=== PATIENT | female | born 1975 | race Caucasian/White ===

== ENCOUNTER 2023-02-20 10:12 | Day surgery (SDC) | payer OTHER, SELFPAY ==
--- NOTE | 2023-02-18 06:49 | EKG12_ITS ---
Test Reason : PREOP Blood Pressure : / mmHG Vent. Rate : 081 BPM Atrial Rate : 081 BPM P-R Int : 126 ms QRS Dur : 104 ms QT Int : 356 ms P-R-T Axes : 077 079 065 degrees QTc Int : 413 ms Normal sinus rhythm Normal ECG Confirmed by YANNICK GARCIA ([id number]), assignment editor BRIONNA GAMA ([id number]) on 02/18/2023 11:23:47 AM Referred By: Henry Mark Confirmed By:YANNICK GARCIA
[2023-02-18 07:12] LABS: Hematocrit 43.3 % (37-47); Hemoglobin 14.7 g/dL (12.0-15.0); Mean Corp Hgb Conc 33.9 g/dL (32-36); Mean Corpuscular Hgb 33.4 pg (27.0-32.0); Mean Corpuscular Volume 98.4 fL (81-99); Platelet Count 222 K/mm3 (150-450); RBC Distribution Width SD 43.7 fl (35.1-43.9); White Blood Count 4.5 K/mm3 (4.4-11.0)
[2023-02-18 07:35] LABS: Anion Gap 3 (5-15); BUN 13 mg/dL (7-18); BUN/Creat Ratio 18.7 RATIO (10-20); Calcium,Total 8.9 mg/dL (8.5-10.1); Chloride 107 mmol/L (98-107); Creatinine, Serum 0.69 mg/dL (0.55-1.02); EST Glomerular Filtration Rate 96 mL/min (>60); Est Glom Filt Rate - Afr Amer 116 mL/min (>60); Glucose 66 mg/dL (74-106); Potassium 3.7 mmol/L (3.5-5.1); Sodium Level 139 mmol/L (136-145)
[2023-02-18 07:49] LABS: Thyroid Stim Hormone (TSH) 0.54 uIU/mL (0.358-3.74)
--- NOTE | 2023-02-20 10:22 | HP.PCM_ITS ---
History and Physical Date of Admission: 02/20/23 Utility Assembler Required: No Is patient in pain?: No Allergies latex Adverse Reaction (Mild, Verified 02/04/23 07:51) OVER TIME BREAKS OUTminocycline Adverse Reaction (Mild, Verified 02/04/23 07:51) RINGING IN EARS Medications levothyroxine 88 mcg tablet 112 mcg PO DAILY 09/14/16 [History Confirmed 02/04/23] ascorbate calcium (vitamin C) 500 mg tablet 500 mg PO DAILY 02/04/23 [History Confirmed 02/04/23] cholecalciferol (vitamin D3) 25 mcg (1,000 unit) capsule 25 mcg PO DAILY 02/04/23 [History Confirmed 02/04/23] multivitamin 1 tab PO DAILY 02/04/23 [History Confirmed 02/04/23] [facility] Medical History (Updated 11/14/22 @ 05:[address] 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 Patient denies any recent hospitalizations or illnesses. Patient denies any abdominal symptoms. Patient denies nausea, vomiting, fever. Patient denies any previous complications or side effects from anesthesia. She denies any cardiac history or pulmonary history. Patient's previous history per Dr. Mark: 47-year-old female. A gallbladder ultrasound was obtained showing cholelithiasis including a 1.5 cm stone in the neck of the gallbladder. Common bile duct is normal. That was performed September 07, 2022 [facility]. The patient had a hepatobiliary scan October 12, 2022 showing ejection fraction of 28%. Stones were found during an MRI. She claims that she has absolutely no symptoms. She does have trouble keeping weight on. No abdominal pain no food intolerance. 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 ROS General General: Yes breast cancer; No weight change, appetite, fatigue, colon cancer or weakness Additional Details: DCIS 2014 HEENT HEENT: No difficulty swallowing, eye injury, eye surgery, swollen glands or hoarseness Endo Endocrine: Yes thyroid disease; No diabetes mellitus, thyroid cancer, Hair loss, heat intolerance or cold intolerance Skin Skin: No rash or changing moles Musc Musculoskeletal: No back problems, arthritis, rheumatoid arthritis, gout or joint pain Cardio Cardiovascular: No murmur, pacemaker, heart disease, atrial fibrillation, high blood pressure, heart attack, heart stent, palpitations, shortness of breat with exertion or chest pain Psych Psychiatric: No depression, anxiety or hearing voices Resp Respiratory: No shortness of breath, No sleep apnea, No cough, No COPD, No asthma, No emphysema and No wheezing Gastro Gastrointestinal: No abdominal pain, No nausea or vomiting, No diarrhea, No constipation, No blood in stool, No acid reflux, No hemorrhoids, No ulcers, Yes gallbladder problem and No black,tarry stools Wes Hematologic: No blood thinners, No blood disorders, No bleeding, No anemia and No blood clots Neuro Neurologic: No system reviewed and no additional complaints, except as documented, No as per HPI, No abnormal gait, No abnormal hearing, No abnormal movements, No abnormal speech, No behavioral changes, No burning sensations, No confusion, No convulsions, No disequilibrium, No dizziness, No localized weakness, No frequent falls, No headache(s), No lack of coordination, No loss of vision, No memory loss, No numbness, No other visual disturbances, No radicular pain, No restless legs, No sensory deficit, No syncope, No tingling, No tremor(s), No weakness and No other Exam Const General: cooperative, healthy appearing, comfortable and no acute distress HENUT Head: normal to inspection Eyes General: appearance normal, both eyes and all related structures Neck Neck: normal visual inspection Neck mass: No Resp Effort & Inspection: normal respiratory effort Auscultation: clear to auscultation bilaterally Cardio Rate: regular rate Rhythm: regular rhythm GI Inspection: normal to inspection Palpation: soft Auscultation: normal bowel sounds Musc Cervical Spine: normal cervical lordosis Skin General: no rashes or lesions noted Neuro General: no focal motor deficits and CN's II-XI intact bilaterally Extrem General: normal to inspection Psych Appearance: grossly normal Affect: normal affect Assessment and Plan Assessment and Plan (1) Cholelithiasis with chronic cholecystitis: Status: Chronic Qualifiers: Cholelithiasis location: gallbladder Biliary obstruction: without biliary obstruction Qualified Code(s): K80.10 - Calculus of gallbladder with chronic cholecystitis without obstruction Plan: Dr. Mark will plan to perform a laparoscopic cholecystectomy with intraoperative cholangiogram. Procedure details, risks and benefits have been explained. Patient has had the opportunity to ask and have questions answered. Patient verbally understands and agrees with the plan. Post-operative instructions were explained to the patient I have examined the patient and the H&P has been reviewed. There are no clinical changes since date of exam. Henry Mark M.D., F.A.C.S.
--- NOTE | 2023-02-20 10:23 | DCINST_ITS ---
Discharge Instructions Procedure General Surgery Diet Discharge Diet: Light diet - advance as tolerated (if you have questions about your diet instructions, please talk to you doctor.) Activity Discharge Activity: May Not Drive (for 3-5 days or while taking narcotic pain medicine.) May shower in (days): 1 Lifting Restrictions: 10 pounds Dressing / Incision Call your doctor if your incision/area has: Continuous Slow Oozing, Sudden Increased Bleeding, Increased Pain/ Swelling, Increased Redness and Foul Smelling Discharge Call your doctor if you observe: Fever of 101 or Higher Suture Line Care: Avoid Pulling/Pushing and Avoid Pinching/Bending Additional Dressing/Incision Instructions:: Change or remove dressing in 4 days. Leave steri-strips in place for 1 week. Follow Up Care Please Follow Up With: Henry Mark MD When: Call [phone] to make an appointment to be seen in about 10 days. Test Results: Test results from this visit will be discussed in further detail at your follow- up appointment, if applicable. Discharge Plan Admission Attending Provider: Henry Mark Primary Care Provider: Pradeep Joy Discharge Orders/Prescriptions Prescriptions: No Action ascorbate calcium (vitamin C) 500 mg tablet 500 mg PO DAILY cholecalciferol (vitamin D3) 25 mcg (1,000 unit) capsule 25 mcg PO DAILY multivitamin Tablet 1 tab PO DAILY levothyroxine 88 MCG tablet 112 mcg PO DAILY Referrals / Follow Up: Pradeep Joy MD [Primary Care Provider] - Disposition Disposition (needs filled in before D/C Order can be placed): Home, Self Care
[2023-02-20] MEDS: Lactated Ringers 1,000 ML 15 ML IV (10:48)
[2023-02-20 10:49] VITALS: BP 133/77; PULSE 96; RESP 18; TEMP 37.1; O2SAT 100; BMI 19.1
[2023-02-20 11:13] LABS: Internal QC Validated? YES +Cl - CLEAR BKGD; Pregnancy, Urine Negative Negative
[2023-02-20] MEDS: Cefazolin 2 GM in 0.9% Normal Saline (100mL Bag) 100 ML IV (11:54)
--- NOTE | 2023-02-20 12:15 | RAD_ITS ---
STUDY: INTRAOPERATIVE CHOLANGIOGRAM. REASON FOR EXAM: Female, 47 years old. Laparoscopic cholecystectomy. FLUOROSCOPY TIME (if supplied): ( 39 seconds ) minutes/seconds. 40.97 mGy TECHNIQUE: An intraoperative cholangiogram was performed by the surgeon. Imaging was submitted. COMPARISON: None. FINDINGS: The visualized intra and extrahepatic biliary ducts are unremarkable. No intraluminal filling defect is seen. There is free flow of contrast into the duodenum. RAD/Cholangiogram/ O R,Initial IMPRESSION: Unremarkable intraoperative cholangiogram. Electronically Signed: Lew Seymour MD at 15:44 EST ,
--- NOTE | 2023-02-20 12:30 | GALL_PTH ---
PATIENT: SULEMA RUDD [place] [facility] [id number] AGE/SX: 47/F ROOM: RE02/20/[address]: Dr. Henry Mark MD : 1975 BED: DIS: 02/20/2023 SPEC #: [id number] RECD: 02/21/23 07:47 STATUS: ROMEO REDanny #: [id number] MAG: 02/20/23 12:[address]: Henry Mark DEPT: SURGICAL PATHOLOGY RECD BY: Aliica Parrish ENTERED: 02/21/23 07:47 SP TYPE: SELENE COLEMAN DR: Dr. Pradeep Joy MD Tissues: Gallbladder, NOS Procedures: Surgery Specimen Level III HEADER OPERATION: Laparoscopic cholecystectomy with IOC PRE-OP DIAGNOSIS: Cholelithiasis with chronic cholecystitis TISSUE SUBMITTED: Gallbladder MICROSCOPIC DIAGNOSIS Gallbladder, cholecystectomy: Chronic cholecystitis and cholelithiasis. AM:lanny 02/22/2023 MICROSCOPIC DESCRIPTION Slides are reviewed. GROSS DESCRIPTION Received is one container labeled with the patient's name and designated gallbladder. The specimen consists of a gallbladder measuring 6.7 x 3.0 x 2.8 cm. The external surface is smooth and glistening. Focally, it is granular, hemorrhagic and contains cautery artifact. The lumen of the gallbladder contains yellow-green mucoid bile and multiple dark green to black calculi ranging in size from <0.1 to 1.5 cm in greatest dimension. The mucosa is bile-stained and without any mass lesions. The gallbladder wall averages 0.2 cm in thickness and is free of mass lesions. Billiard Table Repairer sections of the gallbladder and the cystic duct at margin of resection are submitted in one cassette. / AM:lanny 02/21/2023 TC:3 CPT: 56979
[2023-02-20] MEDS: Bupivacaine Mpf 0.5% 30 ML VIAL (14:00)
--- NOTE | 2023-02-20 14:12 | PCM.OPRPT ---
Report of Operation Date of Procedure: 02/20/23 Pre-Operative Diagnosis: Chronic cholecystitis cholelithiasis Post-Operative Diagnosis: Chronic cholecystitis cholelithiasis Surgery/Procedure Performed:: Laparoscopic cholecystectomy with cholangiograms Description of Surgical Findings:: Timeout informed consent was obtained. 47-year-old female was taken to the operating placement table underwent general tracheal ovation esthesia Ancef 2 g were given intravenously preoperatively the abdomen was sterilely prepped and draped 0.5% Marcaine was used as a local anesthetic skin sites were anesthetized a curvilinear incision was made in the inferior portion of the umbilicus sharp dissection carried down through the subcutaneous tissue holding sutures of 0 Vicryl placed small stab incision was created 14-gauge varies needle was advanced abdomen was inflated with CO2 to a pressure of 10 mmHg pressure no evidence of any injury to 10 mm trocar inserted 10 laparoscope inserted the abdomen was inspected there was some adhesions of ascending colon to the right mid abdomen these appear to be chronic and old. [address] to the epigastric right subcostal area and right lateral subcostal area the gallbladder was just distracted the the gallbladder peritoneum was incised and tedious dissection was performed unfortunately the bulk of the significant inflammatory change was right at the infundibular area where the had the stones lodged tedious dissection was required felt that I had dissected the cystic duct and cystic artery and that there appeared to be an additional posterior structure and so then I elected to go dome down tediously the gallbladder was dissected free from the liver bed the liver bed was retracted were needed throughout the procedure hemostasis was attained with Hem-o-jessica clips I did use subfibulare as well finally was able to dissect posteriorly to recognize that there was a large posterior cystic artery in addition to the anterior cystic artery. I now had the critical view placed Hemoclip on the anterior cystic artery transected it for the hemoclipped on the cystic duct main incision in the cystic duct some gallbladder stone debris was removed at that point then a cholangiogram catheter was inserted fluoroscopically controlled cholangiograms were obtained demonstrating flow into the small bowel there was aberrant anatomy here as well as the cystic duct entered right at the junction of the right and left hepatic ducts. [place] that I had clear distance the cholangiogram catheter was removed 2 Hem-o-jessica clips were placed on the cystic duct stump prior to transecting it the gallbladder now remnants to the liver bed were transected and secured with Hem-o-jessica clips the gallbladder was no spillage of stones or bile that was placed in a retrieval bag the right upper quadrant was irrigated and aspirated free of excess fluid gallbladder bed was inspected was noted to be hemostatic all Hem-o-jessica clips appear to be intact and correctly position the gallbladder was then exited the umbilicus this required slight fascial enlargement. Trocars removed the abdomen deflated CO2 the fascia at the umbilicus approximated with 2 [id number] sutures of 0 Vicryl skin edges proximal interrupted 4 Monocryl subdermal stitches Steri-Strips Telfa OpSite dressings applied sponge and instrument and needle counts were reported to the surgeon to be correct. Specimen gallbladder. Drains none. Blood loss 50 cc The patient was taken to the recovery room in satisfactory addition without apparent complication Henry Mark M.D., F.A.C.S. Surgeon: Henry Mark Type of Anesthesia: General and Local Anesthesiologist: Irvin Leach
[2023-02-20 14:33] VITALS: BP 123/79; BP 133/77; PULSE 84; RESP 16; TEMP 36.3; O2SAT 100
[2023-02-20 14:45] VITALS: BP 124/79; BP 133/77; PULSE 89; RESP 16; O2SAT 100
[2023-02-20 15:00] VITALS: BP 128/78; BP 133/77; PULSE 96; RESP 16; O2SAT 100
[2023-02-20 15:15] VITALS: BP 128/74; BP 133/77; PULSE 92; RESP 16; TEMP 36; O2SAT 100
[2023-02-20] MEDS: HYDROcodone Bitartrate/Apap 5/325 Tablet PO (16:52)
[2023-02-20 18:04] VITALS: BP 116/70; BP 133/77; PULSE 82; RESP 16; TEMP 37; O2SAT 100
== END 2023-02-20 18:13 | disposition home or self-care (01) ==
LOC: SDC 10:14 → AC 10:15
PROVIDERS: Anesthesiology; PCP Family Medicine; Referring Provider Surgery; Visit Provider Surgery
PROC: (CPT 47610; principal; 2023-02-20 12:15)
DX: K80.10 Calculus of gallbladder with chronic cholecystitis without obstruction (principal); E07.9 Disorder of thyroid, unspecified; Z80.0 Family history of malignant neoplasm of digestive organs; Z90.49 Acquired absence of other specified parts of digestive tract; Z79.890 Hormone replacement therapy
CPT/HCPCS: 47562; 00790; 36415; 74300; 76000; 80048; 81025; 84443; 85027; 88304; 93005; J7120; J2405